=== PATIENT | male | born 2000 | race African-American/Black ===

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

== ENCOUNTER 2025-01-07 17:33 | Emergency (ER) | payer MEDICAID ==
[~2025-01-07 17:33] MED LIST: [UNRECOGNIZED DRUG - CODE] PO
[2025-01-07 17:40] VITALS: PULSE 109; RESP 16; O2SAT 99
== END 2025-01-07 18:45 | disposition left against medical advice (07) ==
LOC: ER 17:33
DX: M25.522 Pain in left elbow (principal); Z53.21 Procedure and treatment not carried out due to patient leaving prior to being seen by health care provider